=== PATIENT | male | born 1940 | race Caucasian/White ===

== ENCOUNTER 2019-11-11 12:53 | Outpatient (CLI) | payer MEDICARE, MEDICAID, SELFPAY ==
--- NOTE | 2019-11-11 13:07 | XR_ITS ---
WS: [id number] PROCEDURE: XR chest 2V* [id number] CLINICAL INFORMATION: HYPOXIA, EDEMA, HYPERTENSION COMPARISON: None. FINDINGS: Heart: Normal cardiac silhouette. Aortic calcification. Tortuous thoracic aorta. Lungs: Advanced chronic emphysematous changes. No acute pulmonary infiltrates. No focal pneumonia. No pleural fluid. Flattening of the hemidiaphragms. Bones: Osteopenia. Mild thoracic kyphosis with chronic appearing anterior wedging and compression of the mid and lower thoracic spine. Chronic rib fractures with callus formation. XR/XR chest 2V* [id number] IMPRESSION: 1. Advanced chronic emphysematous changes. No acute pulmonary infiltrates. 2. No pleural fluid. 3. Moderate to advanced kyphosis with multiple chronic appearing compression f ractures in the mid thoracic spine and lower thoracic spine. 4. Chronic rib fractures with callus formation. Osteopenia.
== END 2019-11-11 12:54 | disposition home or self-care (01) ==
LOC: RADWPI 13:01
PROVIDERS: Family Provider Family Medicine; PCP Family Medicine; Visit Provider Family Medicine
DX: R09.02 Hypoxemia (principal); R60.9 Edema, unspecified; F19.20 Other psychoactive substance dependence, uncomplicated; I10 Essential (primary) hypertension; J43.9 Emphysema, unspecified; M40.294 Other kyphosis, thoracic region; S22.009A Unspecified fracture of unspecified thoracic vertebra, initial encounter for closed fracture; S22.49XA Multiple fractures of ribs, unspecified side, initial encounter for closed fracture; M85.80 Other specified disorders of bone density and structure, unspecified site
CPT/HCPCS: 71046

== ENCOUNTER 2019-11-22 14:41 | Outpatient (CLI) | payer MEDICARE, MEDICAID, SELFPAY ==
--- NOTE | 2019-11-22 14:47 | USCV_ITS ---
Ebenezer Campos Age: 79 Gender: M : 1940 Exam Date: 11/22/2019 15:03 Ordering Phys: Corwin Casas DO Technologist: Vidal Carvalho Exam Location: [facility] Indication: CHF BP: 123 / 68 HR: 71 Rhythm: Sinus Technical Quality: Good MEASUREMENTS (Male / Female) Normal Values 2D ECHO LV Diastolic Diameter PLAX 3.8 cm 4.2 - 5.9 / 3.9 - 5.3 cm LV Systolic Diameter PLAX 2.6 cm IVS Diastolic Thickness 1.0 cm 0.6 - 1.0 / 0.6 - 0.9 cm IVS Systolic Thickness 1.3 cm LVPW Diastolic Thickness 1.0 cm 0.6 - 1.0 / 0.6 - 0.9 cm LVPW Systolic Thickness 1.7 cm LVOT Diameter 2.0 cm LV Ejection Fraction 2D Teich 59.5 % LV Ejection Fraction MOD 2C 59.7 % LV Ejection Fraction 2C AL 58.3 % LA Diameter 4.0 cm LA Width 3.1 cm LA Height 4.8 cm RA Width 3.5 cm RA Height 4.5 cm Aorta at Sinotubular Diameter 1.1 cm M-MODE LV Diastolic Diameter MM 5.5 cm 4.2 - 5.9 / 3.9 - 5.3 cm LV Systolic Diameter MM 3.7 cm LV Ejection Fraction MM Teich 60.7 % IVS Diastolic Thickness MM 1.0 cm 0.6 - 1.0 / 0.6 - 0.9 cm IVS Systolic Thickness MM 1.4 cm LVPW Diastolic Thickness MM 1.0 cm 0.6 - 1.0 / 0.6 - 0.9 cm LVPW Systolic Thickness MM 1.5 cm RV Diastolic Diameter MM 1.7 cm Aortic Annulus Diameter 3.3 cm LA Ao Ratio MM 1.2 MV E Point Septal Separation 0.8 cm DOPPLER AV Peak Velocity 139.0 cm/s LVOT Peak Velocity 101.0 cm/s AV Area Cont Eq vti 2.6 cm squared AV Area Cont Eq pk 2.3 cm squared MV Area PHT 5.0 cm squared Mitral E to A Ratio 0.6 MV E' Velocity 8.0 cm/s Mitral E to MV E' Ratio 8.1 Mitral E to LV E' Lateral Ratio 7.4 Mitral E to LV E' Septal Ratio 8.9 TR Peak Velocity 195.0 cm/s TR Peak Gradient 15.2 mmHg TV Peak E Velocity 87.0 cm/s Right Atrial Pressure 3.0 mmHg Pulmonary Artery Systolic Pressu 18.2 mmHg FINDINGS Left Ventricle Normal left ventricular cavity size. Normal left ventricular systolic function. Normal left ventricular cavity size. Left ventricular ejection fraction is estimated at 60 %. Grade I/IV diastolic dysfunction (abnormal relaxation filling pattern), normal to mildly elevated filling pressures. Right Ventricle The right ventricle is normal in size and function. Right Atrium The right atrium is normal in size. Left Atrium The left atrium is normal in size. Mitral Valve Structurally normal mitral valve without significant stenosis or prolapse. There is no mitral regurgitation. Aortic Valve Moderate aortic valve calcification. No aortic valve stenosis. No aortic valve regurgitation. Tricuspid Valve Structurally normal tricuspid valve without significant stenosis or regurgitation. Pulmonary artery systolic pressure is normal. Pulmonic Valve Structurally normal pulmonic valve without significant stenosis. There is no pulmonic regurgitation. Pericardium Normal pericardium without effusion. Aorta Normal ascending aorta dimension. CONCLUSIONS 1-Normal left ventricular cavity size. Normal left ventricular systolic function. Normal left ventricular cavity size. Left ventricular ejection fraction is estimated at 60 %. Grade I/IV diastolic dysfunction (abnormal relaxation filling pattern), normal to mildly elevated filling pressures. 2-Moderate aortic valve calcification. No aortic valve stenosis. No aortic valve regurgitation. 3-There is no pericardial effusion. 4-Pulmonary artery systolic pressure is within normal limits. 5-Right atrial pressure is around 5 mm of mercury. 6-There are no prior echocardiogram studies to compare. Nuno Grande MD (Electronically Signed) Final Date: 24 November 2019 20:27 S
== END 2019-11-22 14:42 | disposition home or self-care (01) ==
LOC: RAD 14:44
PROVIDERS: PCP Family Medicine; Visit Provider Family Medicine
DX: R09.02 Hypoxemia (principal); R60.9 Edema, unspecified; I50.9 Heart failure, unspecified; I70.0 Atherosclerosis of aorta
CPT/HCPCS: 93306

== ENCOUNTER 2021-04-27 13:53 | Emergency (ER) | payer MEDICARE, MEDICAID, SELFPAY ==
--- NOTE | 2021-04-27 14:04 | ECG_ITS ---
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 Measurements Intervals [place] Rate: 95 P: 262 DC: 164 QRS: -86 QRSD: 142 T: 72 QT: 384 QTc: 484 Interpretive Statements ECTOPIC ATRIAL RHYTHM LEFT AXIS DEVIATION [QRS AXIS < -30] RIGHT BUNDLE BRANCH BLOCK [120+ ms QRS DURATION, UPRIGHT V1, 40+ ms S IN I/aVL/V4/V5/V6] No previous ECG available for comparison Electronically Signed On 04-28-2021 20:09:40 WAX SPECIALIST by Steve Morrison M.D. [id number]
[2021-04-27 14:20] VITALS: BP 96/62; PULSE 86; RESP 18; TEMP 35.6; O2SAT 83; BMI 16.6
--- NOTE | 2021-04-27 14:47 | XRR_ITS ---
PROCEDURE INFORMATION: Exam: XR Chest Exam date and time: 04/27/2021 2:47 PM Age: 80 years old Clinical indication: Patient HX: 80-year-old male presents to the emergency room department chief complaint of generalized weakness fatigue increased shortness of breath difficulty breathing is present but has been ongoing for about 3 weeks. TECHNIQUE: Imaging protocol: XR of the chest. Views: 1 view. COMPARISON: CR XR chest 2V* [id number] 11/11/2019 1:11 PM FINDINGS: Lungs: Unremarkable. No consolidation. Pleural spaces: Unremarkable. No pleural effusion. No pneumothorax. Heart/Mediastinum: Unremarkable. No cardiomegaly. Bones/joints: Dextroscoliosis of the thoracic spine. Generalized osseous demineralization with multilevel compression deformities of the mid/lower thoracic spine as noted on previous exam. No acute findings. XR/XR chest 1V portable [id number] IMPRESSION: No acute findings.
--- NOTE | 2021-04-27 14:48 | ECG_ITS ---
[facility] Test Date: 2021-04-27 Pat Name: Ebenezer Campos Department: Room: Gender: Male Professor Of Genetics: : 1940 Requested By: Bob Roche Order Number: [id number] Don MD: Steve Morrison M.D. Measurements Intervals [place] Rate: 80 P: 73 CO: 182 QRS: -83 QRSD: 152 T: 81 QT: 431 QTc: 497 Interpretive Statements SINUS RHYTHM RIGHT BUNDLE BRANCH BLOCK [120+ ms QRS DURATION, UPRIGHT V1, 40+ ms S IN I/aVL/V4/V5/V6] LEFT ANTERIOR FASCICULAR BLOCK [QRS AXIS <= -45, QR IN I, RS IN II] POSSIBLE SEPTAL MYOCARDIAL INFARCTION , OF INDETERMINATE AGE [30 ms Q WAVE IN V1/V2] Compared to ECG 04/27/2021 15:54:38 Left anterior fascicular block now present Myocardial infarct finding now present Ectopic atrial rhythm no longer present Left-axis deviation no longer present Electronically Signed On 04-28-2021 20:01:32 FLOUR MIXER by Steve Morrison M.D. [id number]
[2021-04-27 15:00] LABS: Basophils # 0.1 10^3/uL (0.0-0.1); Basophils % 0.2 %; Eosinophils % 0.1 %; Hemoglobin 14.2 g/dL (11.7-16.6); Lymphocytes # 0.4 10^3/uL (0.8-4.8); Lymphocytes % 1.3 %; Mean Corpuscular Hemoglobin 30.3 pg (28.0-34.0); Mean Corpuscular Volume 91.9 fl (80-94); Mean Platelet Volume 10.7 fL (7.4-10.4); Monocytes # 0.6 10^3/uL (0.2-0.9); Monocytes % 2.2 %; Neutrophils # 27.77 10^3/uL (1.8-7.7); Neutrophils % 95.3 %; Nucleated Red Blood Cells % 0 %; Platelet Count 276 10^3/cmm (130-400); Red Blood Count 4.68 10^6/uL (4.1-5.3); Red Cell Distribution Width 14.5 % (12.1-15.1); White Blood Count 29.1 10^3/uL (4.0-10.0)
--- NOTE | 2021-04-27 15:03 | ED_ITS ---
HPI - Weakness General: Chief complaint: Weakness Stated complaint: weakness, no appetite, diarrhea Time Seen by Provider: 04/27/21 14:33 Source: patient History of Present Illness: HPI Narrative: 80-year-old male presents to the emergency room department chief complaint of generalized weakness fatigue increased shortness of breath difficulty breathing is present but has been ongoing for about 3 weeks. Patient appears to be a very poor historian. He does report a productive cough he reports no pre-existing history of any cardiac issues however he is on intermittent oxygen. MD Complaint: generalized weakness Onset (ago): week(s) (3) Associated symptoms: Denies chest pain, chills, headache(s), nausea or vomiting Review of Systems General: Reports: 10 or more systems reviewed and unremarkable except in HPI and below Const: Reports: fatigue; Denies: chills or malaise Eyes: Denies: change in vision or blurry vision Card: Denies: chest pain or palpitations Resp: Reports: dyspnea, productive cough and chest congestion GI: Denies: abdominal pain, nausea or vomiting : Denies: flank pain Musc: Denies: extremity pain or extremity swelling Skin/Breast: Denies: rash or pruritus Neuro: Denies: headache(s) Psych: Denies: anxiety or depression Venkat/Lymph: Denies: easy bleeding All/Imm: Denies: urticaria, throat swelling or facial swelling Physical Exam Narrative: EXAM NARRATIVE: Patient appears in moderate respiratory distress moderate crackles appreciated on exam. Very tachypneic on exam with moderate crackles and rhonchi noted Const: COMMON NORMALS: patient oriented x3 and healthy appearing; apparent distress (Patient appears in moderate acute distress respiratory.) HENMT: COMMON NORMALS: normocephalic and atraumatic HEAD & SCALP: normocephalic and atraumatic Eye: COMMON NORMALS: Equal, round and reactive pupils present and EOMs intact bilaterally PUPIL: Yes Equal, round and reactive pupils present Neck/C-Spine: COMMON NORMALS: full ROM, supple and no JVD Lymph: LYMPHATIC: no lymphadenopathy noted Chest: COMMONS NORMALS: normal inspection of the chest and normal palpation of entire chest wall Resp: COMMON NORMALS: negative for normal respiratory effort, negative for No retractions and negative for clear to auscultation bilaterally EFFORT & I NSPECTION: Yes able to speak in complete sentences, Yes symmetric chest movement, Yes tachypneic, Yes respiratory distress, Yes decreased respiratory effort, Yes uses accessory muscles and Yes paradoxical thoraco-abdominal movements AUSCULTATION: not clear to auscultation bilaterally Cardio: COMMON NORMALS: no JVD and regular rate RATE: regular rate RHYTHM: abnormal rhythm (Tachycardic on exam) GI: COMMON NORMALS: Normal to inspection, nondistended, normoactive bowel sounds present, Soft to palpation and non-tender INSPECTION: Yes normal to inspection PALPATION: Yes Soft to palpation : COMMON NORMALS: Yes no CVA tenderness BLADDER/KIDNEY EXAM: Yes no CVA tenderness Back/Pelvis: COMMON NORMALS: no CVA tenderness Extremity: COMMON NORMALS: normal to inspection and full ROM Neuro: COMMON NORMALS: patient oriented x3, CN's II-XII intact bilaterally, moves all extremities and no focal motor deficits Psych: COMMON NORMALS: mental status grossly normal, Normal thought process present, cooperative and normal affect THOUGHT PROCESS: Normal thought process present Skin: COMMON NORMALS: no rashes or lesions noted GENERAL SKIN EXAM: no rashes or lesions noted Procedures Central Line Placement Patient went underwent a right IJ placement for central line access due to concerns of hypotension that the patient was developing the site was prepped this was due to emergent procedure consent was provided by family. [place] a sterile gown and sterile gloves And mask the: Time Out Performed: Yes Patient Placed on Monitor/Pulse Ox: Yes MD Prep: mask, gown, gloves and other Central Line Prep: Chlorhexidine scrub Local Anesthetic: lidocaine 1% Amount of anesthesia used (mL): 8 Ultrasound Used for Placement: Yes Central Line Lumen Inserted: triple Post Procedure: sutured in place, good blood return, all ports aspirated, flushed, capped and sterile dressing applied Patient Tolerated Procedure: no complications Complications: none Intubation Time out performed: Yes sedative: Etomidate Mg Given: 20 paralytic: Rocuronium Mg Given: 80 Laryngoscope: fiber optic video scope Assist Device Used: fiber optic device ET Tube Size: 7.5 ET Tube Uncuffed: No Tube Secured Depth (cm): 22 Tube Secured Location: teeth Tube Placement Confirmation: visualized tube passing through cords, equal breath sounds bilaterally, no breath sounds over epigastrium and confirmation by capnometry Patient Tolerated Procedure: well Intubation Complications: none Course ED course: Due to the patient's symptom condition respiratory therapy was contacted lab work imaging blood cultures COVID testing will be obtained we will continue to follow patient be started on steroids and nebs as well as Lasix. Spoke to the patient's DPOA on the phone was reported they were when on full measures to be done which patient is a full code in the event of anything happening this was present from the staff as well as the 2 daughters that are present. Patient has steady decline in the emergency department in which he is having increased altered mentation and confusion in which ultimately he required to be intubated. Patient was started on sepsis criteria medications including Zosyn and vancomycin due to extreme white blood cell count elevation in which his blood pressure continues to remain soft. During the central line placement 1 dose of push dose epi was given as patient became progressively hypotensive during the procedure. No complications were noted during the procedure . Upon the procedure being completed while awaiting for chest x-ray to be obtained patient underwent cardiopulmonary arrest in which 1 round of CPR was initiated in which 2 doses of epinephrine were given per protocol in which we have return of sponta neous circulation. I went out to speak to the family at length regards to the patient's wishes which still would like to full everything to be done. Which patient is a full code at this time. Will speak to cardiology as they noted that there was some EKG changes a monitor at the patient went to a second episode of cardiopulmonary arrest as there is some new ST segment elevations and a bundle branch block which we are unaware of from prior notified by nursing staff the patient went back into cardiopulmonary arrest again protocol was followed and have directed the patient's family back to the room. It was noted per staff the patient had crepitus as well as multiple broken ribs bilaterally upon completion of this round of CPR immediate chest x-ray was obtained that revealed bilateral large pneumothoraces. I spoke to the patient's family which terminated any additional efforts at 1907. Vital Signs: Vital signs: Vital Signs Temperature 96.1 F L 04/27/21 14:20 Pulse Rate 77 04/27/21 17:44 Respiratory Rate 24 H 04/27/21 17:44 Blood Pressure 96/62 04/27/21 14:20 Pulse Oximetry 79 L 04/27/21 16:30 MDM - Weakness Lab Data: Labs: Lab Results 04/27/21 04/27/21 04/27/21 14:40 14:40 14:40 WBC 29.1 10^3/uL H 10 ^3/uL (4.0-10.0) RBC 4.68 10^6/uL 10^6 /uL (4.1-5.3) Hgb 14.2 g/dL g/dL (11.7-16.6) Hct 43.0 % % (42.0-52.0) MCV 91.9 fl fl (80-94) MCH 30.3 pg pg (28.0-34.0) MCHC 33.0 g/dL g/dL (30.0-36.0) RDW 14.5 % % (12.1-15.1) Plt Count 276 10^3/cmm 10^3 /cmm (130-400) MPV 10.7 fL H fL (7.4-10.4) Neut % (Auto) 95.3 % % Lymph % (Auto) 1.3 % % [place] % (Auto) 2.2 % % Eos % (Auto) 0.1 % % Baso % (Auto) 0.2 % % Neut # (Auto) 27.77 10^3/uL H 1 0^3/uL (1.8-7.7) Lymph # (Auto) 0.4 10^3/uL L 10^ 3/uL (0.8-4.8) [place] # (Auto) 0.6 10^3/uL 10^3/ uL (0.2-0.9) Eos # (Auto) 0.0 10^3/uL 10^3/ uL (0.0-0.8) Baso # (Auto) 0.1 10^3/uL 10^3/ uL (0.0-0.1) Nucleated RBC % (a uto) 0 % % Nucleated RBCs # 0.0 /100WBC /100W BC PT 15.20 SECONDS H S ECONDS (12.1-14.9) INR 1.16 (0.8-1.2) APTT 60.9 SECONDS H SE CONDS (23.9-36.7) Specimen Type Sample Site ABG pH ABG pCO2 ABG pO2 ABG HCO3 ABG Base Excess James Test Hematocrit O2 Delivery Device Mechanical Rate FiO2 PEEP Hospital Food Service Worker ID Sodium 136 mmol/L mmol/L (136-145) Potassium 4.6 mmol/L mmol/L (3.5-5.1) Chloride 97 mmol/L L mmol/ L (98-107) Carbon Dioxide 13 mmol/L L mmol/ L (22-29) Anion Gap 30.6 H (5-19) BUN 124 mg/dL H* mg/d L (8-23) Creatinine 6.9 mg/dL H* mg/d L (0.7-1.2) GFR Calculation Not Reportable Glucose 77 mg/dL mg/dL (65-115) Calculated Osmolal ity 321 mOsm/kg H mOs m/kg (285-295) Lactate Calcium 8.8 mg/dL mg/dL (8.5-10.5) Total Bilirubin 0.3 mg/dL mg/dL (0.15-1.2) AST 27 U/L U/L (0-40) ALT 20 U/L U/L (0-41) Alkaline Phosphata se 84 IU/L IU/L (40-130) Troponin T Baselin e Troponin T 120 Min [place] Delta Troponin T NT-Pro-B Natriuret Pep 2171 pg/mL H pg/m L (0-450) Total Protein 6.0 g/dL L g/dL (6.6-8.7) Albumin 3.1 g/dL L g/dL (3.5-5.2) Globulin 2.9 g/dL g/dL (1.3-4.6) Lipase 15 U/L U/L (13-60) Urine Color Urine Appearance Urine pH Ur Specific Gravit y Urine Protein Urine Glucose (UA) Urine Ketones Urine Blood Urine Nitrate Urine Bilirubin Urine Urobilinogen Ur Leukocyte Taylor ase Coronavirus 229E ( PCR) SARS-CoV-2 (PCR) 04/27/21 04/27/21 04/27/21 14:40 14:40 15:45 WBC RBC Hgb Hct MCV MCH MCHC RDW Plt Count MPV Neut % (Auto) Lymph % (Auto) [place] % (Auto) Eos % (Auto) Baso % (Auto) Neut # (Auto) Lymph # (Auto) [place] # (Auto) Eos # (Auto) Baso # (Auto) Nucleated RBC % (a uto) Nucleated RBCs # PT INR APTT Specimen Type Sample Site ABG pH ABG pCO2 ABG pO2 ABG HCO3 ABG Base Excess James Test Hematocrit O2 Delivery Device Mechanical Rate FiO2 PEEP Hospital Food Service Worker ID Sodium Potassium Chloride Carbon Dioxide Anion Gap BUN Creatinine GFR Calculation Glucose Calculated Osmolal ity Lactate 2.3 mmol/L H mmol /L (0.5-2.2) Calcium Total Bilirubin AST ALT Alkaline Phosphata se Troponin T Baselin e 171 ng/L H* ng/L (0-15) Troponin T 120 Min [place] Troponin T NT-Pro-B Natriuret Pep Total Protein Albumin Globulin Lipase Urine Color Urine Appearance Urine pH Ur Specific Gravit y Urine Protein Urine Glucose (UA) Urine Ketones Urine Blood Urine Nitrate Urine Bilirubin Urine Urobilinogen Ur Leukocyte Taylor ase Coronavirus 229E ( PCR) Not detected (NOT DETECT) SARS-CoV-2 (PCR) Detected A (NOT DETECT) 04/27/21 04/27/21 04/27/21 15:45 17:09 17:10 WBC RBC Hgb Hct MCV MCH MCHC RDW Plt Count MPV Neut % (Auto) Lymph % (Auto) [place] % (Auto) Eos % (Auto) Baso % (Auto) Neut # (Auto) Lymph # (Auto) [place] # (Auto) Eos # (Auto) Baso # (Auto) Nucleated RBC % (a uto) Nucleated RBCs # PT INR APTT Specimen Type Arterial Sample Site Brachial, left ABG pH 7.15 L* (7.35-7.45) ABG pCO2 40.9 mmHg mmHg (35-45) ABG pO2 116.0 mmHg H mmHg (80.0-100.0) ABG HCO3 14.1 mmol/L L mmo l/L (22-26) ABG Base Excess -14.3 mmol/L L mm ol/L (-2.0-2.0) James Test N/a Hematocrit 43.4 % % (42-52) O2 Delivery Device Vent Mechanical Rate 14.0 FiO2 100.0 % % PEEP 5.0 cmH20 cmH20 Hospital Food Service Worker ID Rieri Sodium Potassium Chloride Carbon Dioxide Anion Gap BUN Creatinine GFR Calculation Glucose Calculated Osmolal ity Lactate Calcium Total Bilirubin AST ALT Alkaline Phosphata se Troponin T Baselin e Troponin T 120 Min [place] 167.9 ng/L H ng/L (0-15) Delta Troponin T -3.1 ABS# L ABS# (0-10) NT-Pro-B Natriuret Pep Total Protein Albumin Globulin Lipase Urine Color Yellow (Yellow) Urine Appearance Clear (CLEAR) Urine pH 5 (5-7) Ur Specific Gravit y 1.015 (1.005-1.030) Urine Protein Neg (Negative) Urine Glucose (UA) Norm (Normal) Urine Ketones Negative (Negative) Urine Blood Neg (Negative) Urine Nitrate Negative (Negative) Urine Bilirubin 1+ H (Negative) Urine Urobilinogen Norm mg/dL mg/dL (Negative) Ur Leukocyte Taylor ase Negative (Negative) Coronavirus 229E ( PCR) SARS-CoV-2 (PCR) Discharge Plan Discharge Patient Disposition: Clinical Impression: Sepsis, Acute non-ST elevation myocardial infarction (NSTEMI), Acute renal failure (ARF), Cardiopulmonary arrest Condition: Referrals: Corwin Casas DO [Primary Care Provider] - Coding Level of Care Code ED Shake Feeder for Chg Fwd Exam Comprehensive
[2021-04-27] MEDS: dexamethasone 10 mg/mL INJ IVP (15:05)
[2021-04-27] MEDS: FUROsemide 10 mg/mL SDV 4mL 40 MG IVP (15:11)
[2021-04-27 15:17] LABS: INR 1.16 (0.8-1.2)
[2021-04-27 15:19] LABS: Partial Thromboplastin Time 60.9 SECONDS (23.9-36.7)
[2021-04-27 15:23] LABS: Lactate (Lactic Acid level) 2.3 mmol/L (0.5-2.2)
[2021-04-27 15:31] LABS: Troponin(5th) Baseline 171 ng/L (0-15)
[2021-04-27 15:35] LABS: Alanine Aminotransferase 20 U/L (0-41); Albumin Level 3.1 g/dL (3.5-5.2); Alkaline Phosphatase 84 IU/L (40-130); Anion Gap 30.6 (5-19); Aspartate Amino Transferase 27 U/L (0-40); Calcium 8.8 mg/dL (8.5-10.5); Carbon Dioxide 13 mmol/L (22-29); Chloride 97 mmol/L (98-107); Globulin 2.9 g/dL (1.3-4.6); Glucose 77 mg/dL (65-115); Lipase 15 U/L (13-60); NT Pro B Type Natriuretic Pept 2171 pg/mL (0-450); Potassium 4.6 mmol/L (3.5-5.1); Sodium 136 mmol/L (136-145); Total Bilirubin 0.3 mg/dL (0.15-1.2)
[2021-04-27 15:42] LABS: Osmolality Calculated 321 mOsm/kg (285-295)
[2021-04-27] MEDS: albuterol 8 gm MDI 2 PUFF INHALATION (15:42)
[2021-04-27 15:43] LABS: Blood Urea Nitrogen 124 mg/dL (8-23)
[2021-04-27 15:58] LABS: Add Urine Microscopic? NO; Charge for UA Resulting for Rev
[2021-04-27 16:05] LABS: Bilirubin Urine 1+ (Negative); Blood Urine Neg (Negative); Glucose Urine UA Norm (Normal); Ketones Urine Negative (Negative); Leukocyte Esterase Urine Negative (Negative); Nitrate Urine Negative (Negative); Protein Urine Neg (Negative); Specific Gravity, Urine 1.015 (1.005-1.030); Urine Appearance Clear (CLEAR); Urine Color Yellow (Yellow); Urobilinogen Urine Norm (Negative); pH Urine 5 (5-7)
[2021-04-27 16:30] VITALS: RESP 14; O2SAT 79
[2021-04-27] MEDS: succinylcholine 20 mg/mL SDV 10mL 80 MG IVP (16:34)
--- NOTE | 2021-04-27 16:39 | XRR_ITS ---
PROCEDURE INFORMATION: Exam: XR Chest Exam date and time: 04/27/2021 4:39 PM Age: 80 years old Clinical indication: Device placement; Ett placement (vent status); Patient HX: Intubation; Additional info: Post intubation TECHNIQUE: Imaging protocol: XR of the chest. Views: 1 view. COMPARISON: CR XR chest 1V portable [id number] 04/27/2021 2:59 PM FINDINGS: Tubes, catheters and devices: Endotracheal tube tip 2.7 cm above the nahed. Lungs: Emphysematous changes. Bilateral hilar to lower lobe atelectasis versus infiltrate. Pleural spaces: Unremarkable. No pleural effusion. No pneumothorax. Heart/Mediastinum: Unremarkable. No cardiomegaly. Bones/joints: Unremarkable. XR/XR chest 1V [id number] IMPRESSION: 1. Endotracheal tube tip 2.7 cm above the nahed. 2. Emphysematous changes. 3. Bilateral hilar to lower lobe atelectasis versus infiltrate.
--- NOTE | 2021-04-27 16:43 | PC.NURSE ---
At 1631: Vitals 95/25, 90 heart rate, O2 sats 89 bagged, resp 25. Dr Roche gave verbal orders for Etomidate 20mg IVP pushed at 1633 Succ 80 mg IVP pushed at 1634 Intubated with 7.5 tube , 22 at the teeth at 1635 Vitals: 93/39, 94 heart rate, 91 O2 sats, 17 resp ET secured and in place.
--- NOTE | 2021-04-27 16:48 | ECG_ITS ---
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 Measurements Intervals [place] Rate: 92 P: [place]: QRS: 64 QRSD: 181 T: -90 QT: 425 QTc: 527 Interpretive Statements ATRIAL FIBRILLATION WITH ABERRANT CONDUCTION OR VENTRICULAR PREMATURE COMPLEXES LEFT BUNDLE BRANCH BLOCK [120+ ms QRS DURATION, 80+ ms Q/S IN V1/V2, 85+ ms R IN I/aVL/V5/V6] MARKED ST ELEVATION, CONSIDER INFERIOR INJURY [MARKED ST ELEVATION W/O NORMALLY INFLECTED T-WAVE IN II/aVF] ACUTE IA Compared to ECG 04/27/2021 17:27:40 Ventricular premature complex(es) now present Aberrant conduction of supraventricular beat(s) now present Left bundle-branch block now present.ST (T wave) deviation now present Sinus rhythm no longer present. Right bundle-branch block no longer present Left anterior fascicular block no longer present. Myocardial infarct finding still present Electronically Signed On 04-28-2021 20:12:18 STAGE SETTING PAINTER APPRENTICE by Steve Morrison M.D. [email or web address]/[id number] f
[2021-04-27] MEDS: propofol 1,000 MG/100 ML INJ 1.36 MG IV (17:01)
[2021-04-27 17:21] LABS: ABG PCO2 40.9 mmHg (35-45); Arterial Blood Gas Hematocrit 43.4 % (42-52); Base Excess ABG -14.3 mmol/L (-2.0-2.0); Blood Gas Sample Site Brachial, left; Blood Gas Sample Type Arterial; HCO3 ABG 14.1 mmol/L (22-26); Oxygen Device VENT
[2021-04-27 17:23] LABS: ABG PH Result 7.15 (7.35-7.45)
--- NOTE | 2021-04-27 17:23 | PC.NURSE ---
Pt placed on continual cardiac, BP, SpO2 monitoring upon arrival into room.
[2021-04-27 17:40] LABS: Troponin 5 2HR Delta -3.1 ABS# (0-10)
[2021-04-27 17:41] LABS: Troponin 5 2HR 167.9 ng/L (0-15)
[2021-04-27 17:44] VITALS: PULSE 77; RESP 24
[2021-04-27] MEDS: rocuronium 10 mg/mL INJ 5mL 80 MG IVP (18:08)
[2021-04-27] MEDS: EPINEPHrine 0.1 mg/mL SYR 10 mL 1 MG IVP (18:20)
--- NOTE | 2021-04-27 18:30 | XRR_ITS ---
PROCEDURE INFORMATION: Exam: XR Chest Exam date and time: 04/27/2021 6:30 PM Age: 80 years old Clinical indication: Other vascular access device placement or adjustment; Central line, non-tunnelled; Patient HX: Code blue - line placement TECHNIQUE: Imaging protocol: XR of the chest. Views: 1 view. COMPARISON: CR (CHEST, ) 04/27/2021 4:48 PM FINDINGS: Tubes, catheters and devices: Endotracheal tube tip seen approximately 6.5 cm above the nahed. Right-sided central venous catheter with tip approaching the atrial caval junction. Lungs: New right large pneumothorax with near complete collapse of the entire right lung. Large left pneumothorax largely in the lower lung rios with at least 3.7 cm separation between the lung and pleura Pleural spaces: See Lungs finding. Heart/Mediastinum: Unremarkable. No cardiomegaly. Bones/joints: Unremarkable. XR/XR chest 1V portable [id number] IMPRESSION: 1. New right large pneumothorax with near complete collapse of the entire right lung. 2. Large left pneumothorax largely in the lower lung rios with at least 3.7 cm separation between the lung and pleura 3. Endotracheal tube tip seen approximately 6.5 cm above the nahed. 4. Right-sided central venous catheter with tip approaching the atrial caval junction.
--- NOTE | 2021-04-27 18:31 | PC.NURSE ---
Levophed ordered and MD verbal orders to hold based on BP.
[2021-04-27 19:26] LABS: Adenovirus Not Detected (NOT DETECT); Chlamydia Pneumoniae Not Detected (NOT DETECT); Coronavirus 229E,HKU1,NL63,OC4 Not Detected (NOT DETECT); Human Metapneumovirus Not Detected (NOT DETECT); Human Rhinovirus/Enterovirus Not Detected (NOT DETECT); Influenza A Not Detected (NOT DETECT); Influenza A H1 Not Detected (NOT DETECT); Influenza A H1-2009 Not Detected (NOT DETECT); Influenza A H3 Not Detected (NOT DETECT); Influenza B Not Detected (NOT DETECT); Mycoplasma Pneumoniae Not Detected (NOT DETECT); Parainfluenza Virus Type 1 Not Detected (NOT DETECT); Parainfluenza Virus Type 2 Not Detected (NOT DETECT); Parainfluenza Virus Type 3 Not Detected (NOT DETECT); Parainfluenza Virus Type 4 Not Detected (NOT DETECT); Respiratory Syncytial Virus A Not Detected (NOT DETECT); Respiratory Syncytial Virus B Not Detected (NOT DETECT); SARS-COV-2 Detected (NOT DETECT)
--- NOTE | 2021-04-27 20:17 | PC.NURSE ---
At 1840 asystole noted on monitors at nurses station. At bedside no carotid pulse palpated. Dr at bedside and CPR initiated. 1mg of epinepherine administered IVP at 1840. Pulse check at 1842 and ROSC noted with strong carotid and femoral pulses.
--- NOTE | 2021-04-27 20:28 | PC.NURSE ---
Critical Care time of 4 and 1/2 hours
--- NOTE | 2021-04-27 21:40 | PC.NURSE ---
Patient Time of called at 1908 [facility] contacted by Automotive Brake Technician. Patient not a candidate for donation per [facility]. Hot Man contacted by Project Management Advisor and body released. Family member completed release of body form and [facility] contacted.
[2021-04-28 04:48] LABS: Glucose Point of Care 73 mg/dL (70-110)
== END 2021-04-27 22:55 | disposition expired ==
PROVIDERS: Emergency Medicine; Emergency Provider Emergency Medicine; PCP Family Medicine
DX: I46.9 Cardiac arrest, cause unspecified (principal); I21.4 Non-ST elevation (NSTEMI) myocardial infarction; N17.9 Acute kidney failure, unspecified; A41.9 Sepsis, unspecified organism; U07.1 COVID-19
CPT/HCPCS: 31500; 36415; 36416; 36556; 36600; 51702; 71045; 80053; 81003; 82803; 82962; 83605; 83690; 83880; 84484; 85025; 85610; 85730; 87040; 87205; 87635; 93005; 94002; 96365; 96366; 96367; 96368; 96375; 99291; 99292; C1751; J0153; J0171; J0330; J1100; J1940; J2704; J3490; J3535